=== PATIENT | male | born 1945 ===

== ENCOUNTER 2017-09-22 16:52 | Inpatient (IN) | payer OTHER ==
[~2017-09-22] VITALS: Ht 182.9 cm; Wt 79.4 kg
[2017-09-22] MEDS ORDERED: SOTALOL80 MG (17:15)
[2017-09-22] MEDS ORDERED: LEVAQUIN500 MG (17:16)
[2017-09-22] MEDS ORDERED: COZAAR25 MG (17:18)
[2017-09-22] MEDS ORDERED: FUROSEMIDE20 MG (17:18)
== END 2017-10-03 19:41 | disposition home or self-care (01) | DRG 571 ==
LOC: ER 16:52 → MEDJ 09-23 13:13
PROC: 0JBN0ZZ Excision of Right Lower Leg Subcutaneous Tissue and Fascia, Open Approach (ICD-10-PCS; principal; 2017-09-30)
PROC: 0JBQ0ZZ Excision of Right Foot Subcutaneous Tissue and Fascia, Open Approach (ICD-10-PCS; 2017-09-30)
DX: L03.115 Cellulitis of right lower limb (principal); L97.818 Non-pressure chronic ulcer of other part of right lower leg with other specified severity; L97.318 Non-pressure chronic ulcer of right ankle with other specified severity; I87.2 Venous insufficiency (chronic) (peripheral); I10 Essential (primary) hypertension; B95.61 Methicillin susceptible Staphylococcus aureus infection as the cause of diseases classified elsewhere

== ENCOUNTER 2018-02-12 09:55 | Emergency (ER) | payer OTHER ==
[~2018-02-12] VITALS: Ht 182.9 cm; Wt 79.4 kg
[~2018-02-12 09:55] MED LIST: COZAAR25 MG; FUROSEMIDE20 MG; LEVAQUIN500 MG; SOTALOL80 MG
[2018-02-12] MEDS ORDERED: ASPIR 8181 MG PO (10:16)
[2018-02-12] MEDS ORDERED: DICLOFENAC SODI50 MG PO (15:09)
== END 2018-02-12 15:15 | disposition home or self-care (01) ==
LOC: ER 09:55
DX: I87.2 Venous insufficiency (chronic) (peripheral) (principal); I70.292 Other atherosclerosis of native arteries of extremities, left leg; M25.572 Pain in left ankle and joints of left foot

== ENCOUNTER 2019-04-01 12:20 | Inpatient (IN) | payer OTHER ==
[~2019-04-01] VITALS: Ht 182.9 cm; Wt 79.4 kg
[~2019-04-01 12:20] MED LIST changes: +ASPIR 8181 MG PO; +DICLOFENAC SODI50 MG PO
--- NOTE | 2019-04-01 12:29 | NUR ---
SE RECIBE PTE ALERTA Y ORIENTADO X3,REFERIDO POR EL DR. ARNIE DORANTES ,REFIERE QUE EL PTE TIENE LUCY INFECCION SEVERA EN EL PIE DERECHO LO ENVIA DE POLO OFICINA,REFIERE QUE ES PARA ADMICION.
--- NOTE | 2019-04-01 15:09 | NUR ---
PACIENTE EN MEDICINA NUCLEAR.
--- NOTE | 2019-04-01 15:23 | NUR ---
MRS Y.MCDONALD ORIENTA A PT SOBRE TX EL CUALREFIERE ENTENDER. SE LE COLECTAN MUESTRAS BAJO MEDIDAS ASEPTICAS PT TOLERA.
[2019-04-17] MEDS ORDERED: KEFLEX500 MG PO (13:42)
[2019-04-17] MEDS ORDERED: FUROSEMIDE20 MG PO (13:43)
== END 2019-04-18 13:54 | disposition home or self-care (01) | DRG 603 ==
LOC: ER 12:20 → MEDI 20:50 → SEC-K 20:50 → MEDI 21:21
PROVIDERS: ADMIT Internal Medicine
PROC: B44HZZZ Ultrasonography of Bilateral Lower Extremity Arteries (ICD-10-PCS; 2019-04-01)
PROC: B54DZZZ Ultrasonography of Bilateral Lower Extremity Veins (ICD-10-PCS; 2019-04-01)
PROC: 4A033R1 Measurement of Arterial Saturation, Peripheral, Percutaneous Approach (ICD-10-PCS; 2019-04-09)
PROC: B245ZZZ Ultrasonography of Left Heart (ICD-10-PCS; 2019-04-10)
PROC: BH3 Imaging, Skin, Subcutaneous Tissue and Breast, Magnetic Resonance Imaging (MRI) (ICD-10-PCS; 2019-04-14)
PROC: 0HBKXZX Excision of Right Lower Leg Skin, External Approach, Diagnostic (ICD-10-PCS; principal; 2019-04-16)
DX: L03.115 Cellulitis of right lower limb (principal); I48.20 Chronic atrial fibrillation, unspecified; I83.218 Varicose veins of right lower extremity with both ulcer of other part of lower extremity and inflammation; L97.819 Non-pressure chronic ulcer of other part of right lower leg with unspecified severity; I73.9 Peripheral vascular disease, unspecified; I11.0 Hypertensive heart disease with heart failure; I50.9 Heart failure, unspecified
CPT/HCPCS: 73221